=== PATIENT | male | born 1970 | race Caucasian/White ===

== ENCOUNTER 2017-12-01 00:48 | Emergency (ER) | payer SELFPAY ==
[2017-12-01 01:07] VITALS: O2SAT 94
[2017-12-01] MEDS ORDERED: Sodium Chloride 0.9% 1,000 ML IV ONE (01:22)
--- NOTE | 2017-12-01 01:32 | C.PDOC ---
History Of Present Illness 47 year old male presents to the ED c/o left scapular area, left shoulder and left neck pain. Patient reports he is unable to move his left arm due to pain. Patient denies fever, chills, nausea, vomit, headache, visual changes, headache, injury, fall, trauma, weakness, numbness. Chief Complaint (Nursing): Shortness Of Breath History Per: Patient History/Exam Limitations: no limitations Onset/Duration Of Symptoms: Hrs Current Symptoms Are (Timing): Still Present Initiating Event: Other Quality: "Pain" Associated Symptoms: Other Recent travel outside of the [place]: No Additional History Per: Patient Past Medical History Reviewed: Historical Data, Nursing Documentation, Vital Signs Vital Signs: Last Vital Signs Temp 98.3 F 12/01/17 00:55 Pulse 99 H 12/01/17 00:55 Resp 22 12/01/17 00:55 BP 128/77 12/01/17 00:55 Pulse Ox 94 L 12/01/17 00:55 - Medical History PMH: Asthma, HTN, Pancreatitis Surgical History: No Surg Hx Family History: States: Unknown Family Hx - Social History Hx Alcohol Use: Yes Hx Substance Use: No - Immunization History Hx Tetanus Toxoid Vaccination: No Hx Influenza Vaccination: No Hx Pneumococcal Vaccination: No Review Of Systems Constitutional: Negative for: Fever, Chills Cardiovascular: Negative for: Chest Pain Respiratory: Negative for: Shortness of Breath Gastrointestinal: Negative for: Nausea, Vomiting Musculoskeletal: Positive for: Neck Pain, Shoulder Pain, Back Pain Skin: Negative for: Rash Neurological: Negative for: Weakness, Numbness, Headache Physical Exam - Physical Exam Appears: Non-toxic, No Acute Distress Skin: Normal Color, Warm, Dry Head: Atraumatic, Normacephalic Eye(s): bilateral: Normal Inspection Oral Mucosa: Moist Neck: Normal ROM, Supple, Other (left lateral neck area tenderness) Chest: Symmetrical Cardiovascular: Rhythm Regular Respiratory: Normal Breath Sounds, No Rales, No Rhonchi, No Wheezing Back: Other (left posterior scapular area tenderness) Extremity: Normal ROM, Tenderness (left supraclavicular area), Capillary Refill (< 2 seconds), No Swelling Pulses: Left Radial: Normal, Right Radial: Normal Neurological/Psych: Oriented x3, Normal Speech, Normal Cognition, Normal Motor, Normal Sensation Gait: Steady ED Course And Treatment - Laboratory Results Result Diagrams: 12/01/17 01:51 12/01/17 01:51 ECG: Interpreted By Me, Viewed By Me ECG Rhythm: Sinus Rhythm ECG Interpretation: No Acute Changes, Abnormal Interpretation Of ECG: NSR, Q in III and AVF, no acute changes Rate From EC O2 Sat by Pulse Oximetry: 94 Pulse Ox Interpretation: Normal - Radiology CXR: Interpreted by Me, Viewed By Me CXR Interpretation: Yes: No Acute Disease, Other (normal chest film). No: Infiltrates - CT Scan/US CT neck Other Rad Studies (CT/US): Read By Radiologist, Radiology Report Reviewed CT/US Interpretation: EXAM: CT Neck Without IV contrast. CLINICAL HISTORY: Left posterior neck pain. TECHNIQUE: Axial computed tomography images of the neck without intravenous contrast. Sagittal and coronal reformatted images were generated. CONTRAST: Without. COMPARISON: None provided. FINDINGS: PHARYNX: The nasopharynx, oropharyx, and hypopharynx are unremarkable. No pharyngeal mucosal based lesions. LARYNX: The larynx is unremarkable. Normal epiglottis. RETROPHARYNGEAL SPACE: No retropharyngeal soft tissue swelling or gas. SALIVARY GLANDS: The parotid, submandibular, and sublingual glands are unremarkable. LYMPH NODES: No lymphadenopathy is evident. THYROID: The thyroid gland is unremarkable. No nodule. BONES: No acute osseous abnormality. Bilateral ethmoid and maxillary sinusitis. IMPRESSION: Sinusitis. Otherwise unremarkable CT neck without IV contrast. . Electronically signed on Dec 01, 2017 3:37:52 AM EDT by: Jeff Duncan M.D., PARRISH Certified By ABR & CBCCT. Fellowship Trained MRI and CT Specialist CT chest Other Rad Studies (CT/US): Read By Radiologist, Radiology Report Reviewed CT/US Interpretation: EXAM: CT Chest Without IV contrast. CLINICAL HISTORY: Left upper back/neck pain. TECHNIQUE: Axial computed tomography images of the chest without intravenous contrast. COMPARISON: None provided. FINDINGS: LUNGS: Scarring is seen in the right middle lobe, lingula and lung bases. PLEURAL SPACES: No pneumothorax evident. No pleural effusions. HEART: No ca rdiomegaly. No significant pericardial effusion. LYMPH NODES: No lymphadenopathy is evident. UPPER ABDOMEN: There is diffuse hepatic hypoattenuation compatible with fatty infiltration. Small hiatal hernia. BONES: No acute osseous abnormality. IMPRESSION: 1. No acute pathology. 2. Small hiatal hernia. 3. Scarring is seen in the right middle lobe, lingula and lung bases. 4. Fatty liver. . Electronically signed on Dec 01, 2017 3:42:01 AM EDT by: Jeff Duncan M.D., PARIRSH Certified By ABR & CBCCT. Fellowship Trained MRI and CT Specialist Medical Decision Making Medical Decision Making: Plan: * CT neck * EKG * Labs * CXR * IV fluids * Toradol 30 mg IVP Disposition Counseled Patient/Family Regarding: Diagnosis - Disposition Referrals: [facility] [Outside] Disposition: HOME/ ROUTINE Disposition Time: 03:49 Condition: STABLE Prescriptions: Cyclobenzaprine [Cyclobenzaprine HCl] 10 mg PO TID #20 tab Naproxen 375 mg PO TIDPC #20 tablet Instructions: Upper Back Pain (DC) Forms: [facility] (Chilean), Gen Discharge Inst [place] - POA Present On Arrival: None - Clinical Impression Clinical Impression: Back pain, Fibromyalgia affecting shoulder region - Scribe Statement The provider has reviewed the documentation as recorded by the Scribe Tenizn Caal All medical record entries made by the Scribe were at my direction and personally dictated by me. I have reviewed the chart and agree that the record accurately reflects my personal performance of the history, physical exam, medical decision making, and the department course for this patient. I have also personally directed, reviewed, and agree with the discharge instructions and disposition.
[2017-12-01] MEDS ORDERED: Sodium Chloride 0.9% 1,000 ML ONE (01:54)
[2017-12-01 01:55] LABS: BASO % 0.3 % (0.0-2.0); EOS % 0.3 % (0.0-4.0); HEMOGLOBIN 15.5 g/dL (12.0-18.0); LYMPH # 3.6 K/uL (1.0-4.3); MEAN CELL VOLUME 85.8 fL (80.0-94.0); MEAN CORPUSCULAR HEMOGLOBIN 29.8 pg (27.0-31.0); MEAN CORPUSCULAR HGB CONC 34.8 g/dL (33.0-37.0); MEAN PLATELET VOLUME 9.1 fL (7.2-11.7); MONO # 0.5 K/uL (0.0-0.8); MONO % 8.8 % (0.0-10.0); NEUT # 1.9 K/uL (1.8-7.0); NEUT % 30.6 % (50.0-75.0); NRBC % 0.2 % (0.0-2.0); PLATELET COUNT 286 K/uL (130-400); RBC 5.19 Mil/uL (4.40-5.90); RED CELL DISTRIBUTION WIDTH 14.7 % (11.5-14.5)
[2017-12-01 02:01] LABS: PARTIAL THROMBOPLASTIN TIME 35 SECONDS (21-34); PROTHROMBIN TIME 11.4 SECONDS (9.7-12.2)
[2017-12-01 02:03] LABS: D DIMER < 200 ng/mlDDU (0-243)
[2017-12-01 02:20] LABS: ALB/GLOB RATIO 1.3 (1.0-2.1); ALBUMIN 4.6 g/dL (3.5-5.0); ALT/SGPT 48 U/L (21-72); AST/SGOT 38 U/L (17-59); BLOOD UREA NITROGEN 7 mg/dL (9-20); CALCIUM 9.7 mg/dl (8.6-10.4); GFR NON-AFRICAN AMERICAN > 60
[2017-12-01 02:25] LABS: LYMPHOCYTE 38 % (20-40); MONOCYTE 11 % (0-10); NEUTROPHIL 36 % (50-75); PLATELET ESTIMATE NORMAL (NORMAL); REACTIVE LYMPHOCYTES 15 % (0-0); TOTAL CELLS COUNTED 100
[2017-12-01] MEDS ORDERED: Naproxen 550 mg Tab PO STA (03:54)
[2017-12-01] MEDS ORDERED: Naproxen 550 mg Tab PO ONE (04:00)
[2017-12-01 04:08] VITALS: BP 110/66; PULSE 91; RESP 20; TEMP 97.9
--- NOTE | 2017-12-01 08:57 | RAD ---
HISTORY: Chest pain COMPARISON: No prior. TECHNIQUE: Chest PA and lateral FINDINGS: LINES AND TUBES: None. LUNG AND PLEURA: The lungs are well inflated and clear. No pleural effusion or pneumothorax. HEART AND MEDIASTINUM: The heart is not enlarged. The hilar and mediastinal contours are within normal limits. SKELETAL STRUCTURES: The bony structures are within normal limits for the patient's age. VISUALIZED UPPER ABDOMEN: Normal. OTHER FINDINGS: None. IMPRESSION: No active pulmonary disease.
--- NOTE | 2017-12-01 10:32 | CT ---
Date of service: 12/01/2017 PROCEDURE: CT NECK WITHOUT CONTRAST HISTORY: left posterior pain and neck pain COMPARISON: None available. TECHNIQUE: CT of the neck without intravenous contrast. Coronal and sagittal reformats generated. Radiation dose: DLP 543.08 mGy-cm This CT exam was performed using one or more of the following dose reduction techniques: Automated exposure control, adjustment of the mA and/or kV according to patient size, and/or use of iterative reconstruction technique. FINDINGS: NASOPHARYNX: Within normal limits. SUPRAHYOID NECK: No bulky mass in the oropharynx, oral cavity, parapharyngeal space and retropharyngeal space. INFRAHYOID NECK: No bulky mass in the larynx, hypopharynx, and supraglottic space. Vocal cords intact. MASS: No bulky mass. GLANDS: Parotid and submandibular glands unremarkable. Normal size thyroid gland, without nodule. LYMPH NODES: Normal. No lymphadenopathy. CERVICAL SPINE: No fracture or focal lesion. OTHER FINDINGS: Aneurysmal dilatation of the ascending aorta which measures 4.0 x 4.1 cm. There is mild polypoid mucosal thickening in the maxillary sinuses. IMPRESSION: 1. No acute findings on this noncontrast CT scan of the neck. 2. Aneurysmal dilatation of the ascending aorta. 3. Mild chronic maxillary sinusitis. A preliminary report was provided by [facility].
--- NOTE | 2017-12-01 13:28 | CT ---
Date of service: 12/01/2017 PROCEDURE: CT Chest without contrast HISTORY: PAIN COMPARISON: None available. TECHNIQUE: Contiguous axial images were obtained through the chest without intravenous contrast enhancement. Sagittal and coronal reconstructions were performed. Radiation dose (DLP): mGy-cm. This CT exam was performed using one or more of the following dose reduction techniques: Automated exposure control, adjustment of the mA and/or kV according to patient size, and/or use of iterative reconstruction technique. FINDINGS: LUNGS: Mild bibasilar fibrotic change. MEDIASTINUM: Unremarkable thoracic aorta. No aneurysm. Normal sized heart. Main pulmonary artery unremarkable. No vascular congestion. No lymphadenopathy. No aortic calcifications. PLEURA: No pleural fluid. No pneumothorax. BONES: No fracture. No destructive lesion. UPPER ABDOMEN: Grossly unremarkable. OTHER FINDINGS: None. IMPRESSION: Mild bibasilar fibrotic change.
--- NOTE | 2017-12-02 20:12 | CARD ---
APPROVED REPORT Date of service: 12/01/2017 EKG Measurement Heart [id number] <Conclusion> Normal sinus rhythm Inferior infarct, age undetermined Abnormal ECG
== END 2017-12-01 04:10 | disposition home or self-care (01) ==
LOC: C.ER 00:48
DX: M54.9 Dorsalgia, unspecified (principal); M79.7 Fibromyalgia; I10 Essential (primary) hypertension
CPT/HCPCS: 70490; 71046; 71250; 80053; 84484; 85025; 85378; 85610; 85730; 93005; 96374; 99284; J1885; J7030